=== PATIENT | female | born 1975 | race Caucasian/White ===

== ENCOUNTER 2024-03-26 11:31 | Outpatient (REF) | payer MEDICAID, SELFPAY ==
[2024-03-26 14:47] LABS: MANUAL DIFF FLAG NO
[2024-03-26 14:51] LABS: Basophils Absolute Auto 0.1 X10*3/uL (0.0-0.2); Basophils Percent Auto 0.8 % (0-2); Eosinophils Absolute Auto 0.2 X10*3/uL (0.0-0.4); Eosinophils Percent Auto 2.5 % (0-4); Hematocrit 43.5 % (37.0-47.0); Hemoglobin 14.4 g/dl (12.0-16.0); Imm Gran Abs Auto 0.02 X10*3/uL (0.00-0.03); Imm Gran Pct Auto 0.3 % (0.0-0.4); Lymphocytes Absolute Auto 2.7 X10*3/uL (1.2-4.9); Lymphocytes Percent Auto 36.3 % (20-40); Mean Corpuscular HGB Conc 33.1 g/dl (31.0-35.0); Mean Corpuscular Hemoglobin 28.2 pg (27.0-33.0); Mean Corpuscular Volume 85.3 fL (80.0-98.0); Mean Platelet Volume 10.6 fL (9.4-12.3); Monocytes Absolute Auto 0.5 X10*3/uL (0.1-1.2); Monocytes Percent Auto 6.7 % (2-11); Neutrophils Absolute Auto 3.9 x10*3/uL (2.0-8.3); Neutrophils Percent Auto 53.4 % (45-73); Platelet Count 296 X10*3/uL (160-400); White Blood Count 7.3 X10*3/uL (4.8-10.8)
[2024-03-26 15:13] LABS: Alanine Aminotransferase 14 U/L (0-31); Albumin Level 4.5 g/dL (3.5-5.0); Alkaline Phosphatase 79 U/L (39-117); Anion Gap 12 (12-20); Aspartate Amino Transferase 12 U/L (5-31); Bilirubin Total 0.3 mg/dL (0.0-1.0); Blood Urea Nitrogen 23 mg/dL (9-16); Carbon Dioxide 31 mmol/L (22-29); Chloride 103 mmol/L (96-108); Estimated Glomerular Filt Rate 58; Glucose Random 140 mg/dL (60-115); Potassium 4.6 mmol/L (3.3-5.1); Sodium 141 mmol/L (135-145); Total Protein 7.8 g/dL (6.5-8.0)
[2024-03-26 15:31] LABS: TSH reflex Free T4 0.55 uIU/mL (0.32-4.0); Vitamin D 25-OH Total 30.3 ng/mL (>30)
[2024-03-27 04:17] LABS: HIV AB/AG Nonreactive (Nonreactive); HIV Num 1 0.05 S/CO (0.00-0.99)
[2024-03-27 17:13] LABS: HCV Log PCR <1.18 NOT DETECTED Log IU/mL (NOT DETECTED); HepC Viral Load <15 NOT DETECTED IU/mL (NOT DETECTED)
[2024-03-28 22:23] LABS: TS Negative Control Passed; TS Panel A 0; TS Panel B 0; TS Positive Control Passed; TSpotTB Negative (Negative)
== END 2024-03-26 11:32 | disposition home or self-care (01) ==
LOC: HO.CHCLDS 11:31
PROVIDERS: PCP Student in an Organized Health Care Education/Training Program; Referring Provider Internal Medicine; Visit Provider Student in an Organized Health Care Education/Training Program
DX: Z00.00 Encounter for general adult medical examination without abnormal findings (principal); F41.9 Anxiety disorder, unspecified; F32.A Depression, unspecified
CPT/HCPCS: 36415; 80053; 82306; 84443; 85025; 86481; 87389; 87522

== ENCOUNTER 2024-05-13 15:40 | Outpatient (REF) | payer MEDICAID, SELFPAY ==
[2024-05-14 11:28] LABS: CT PCR NOT DETECTED (Not Detect.); NG PCR NOT DETECTED (Not Detect.)
== END 2024-05-13 15:41 | disposition home or self-care (01) ==
LOC: HO.CHCLNP 15:40
PROVIDERS: Visit Provider Student in an Organized Health Care Education/Training Program
DX: Z12.4 Encounter for screening for malignant neoplasm of cervix (principal)
CPT/HCPCS: 36415; 87491; 87591; 88175

== ENCOUNTER 2024-11-27 17:40 | Outpatient (REF) | payer MEDICAID, SELFPAY ==
--- OUTSIDE RECORDS SUMMARY | 2024-11-27 17:42 | XMS_ITS | Encounter Summary ---
Author Organization [employer] Address [address] [place] [address] Care Team Providers Care Management Department Chair Name Role Phone Luz Jacobs MD Primary Care Provider [phone] Encounter Details Date Type Department Care Team ([facility] st Contact Info) Description 11/27/2024 1:40 PM EDT Office Visit [facility] MED & PEDS [address] [place], [place] [id number] Vaginosis (Primary Dx); Neck pain, chronic; Acute bilateral low back pain with bilateral sciatica Social History Tobacco Use Types Packs/Day Years Used Date Smoking Tobacco: Every Day Cigarettes Smokeless Tobacco: Current Depression Answer Date Recorded Patient Health Questionnaire-9 Score 15 04/17/2024 Patient Health Questionnaire-9 Score 15 04/17/2024 Last PHQ-9: Questionnaire Data Not on file 0 04/17/2024 Housing Stability Answer Date Recorded What is your housing situation today? I have carolyn de la cruz 09/05/[address] you li ve. Do you have problems with any of the following? None of the above 09/05/2023 Food Insecurity Answer Date Recorded Within the past 12 months, y ou worried that your food would run out before you got money to buy more: Never True 09/05/2023 Within the past 12 months,th e food you bought just didn't last and you didn't have enough money to get more: Never True 01/2024 Transportation Answer Date Recorded In the past 12 months, has l ack of transportation kept you from medical appts, meetings, work or from getting things needed for daily living? No 09/05/2023 Utilities Answer Date Recorded In the past 12 months, has t he electric, gas, oil or water company threatened to shut off services in your home? No 09/05/2023 Depression Answer Date Recorded Patient Health Questionnaire-2 Score 6 04/17/2024 Comments No Sex and Gender Information Value Date Recorded Sex Assigned at Female 05/29/2022 10:21 AM EDT Legal Sex Female 10:21 AM EDT Gender Identity Female 05/29/2022 10:21 AM EDT Sexual Orientation Straight 05/29/2022 10 :21 AM EDT documented as of this encounter Last Filed Vital Signs Vital Sign Reading Time Taken Comments Blood Pressure 130/82 11/27/2024 1:51 PM EDT Pulse 98 11/27/2024 1:51 PM EDT Temperature 36.7 ??C (98.1 ??F) 11/27/2024 1:51 PM ED T Respiratory Rate 20 11/27/2024 1:51 PM EDT Oxygen Saturation 98% 11/27/2024 1:51 PM EDT Inhaled Oxygen Concentration - - Weight 80.7 kg (178 lb) 11/27/2024 1:51 PM EDT Height 152.4 cm (5') 11/27/2024 1:51 PM EDT Body Mass Index 34.76 11/27/2024 1:51 PM EDT documented in this encounter Plan of Treatment Upcoming Encounters Date Type Department Care Team (Late st Contact Info) Description 12/24/2024 8:45 AM EDT Office Visit [facility] MED & PEDS [address] [place] [address] Luz Jacobs MD [address] [place] [address] Scheduled Orders Name Type Priority Associated Diagnoses Orde r Schedule Bacterial Vaginosis Panel Microbiology Routine Vaginosis Ordered: 11/27/2024 Chlamydia/N. Gonorrhoeae RNA, TMA, Urogenitial Microbiology Routine Vaginosis Ordered: 11/27/2024 XR CERVICAL SPINE 4V Imaging Routine Neck pain, chronic Expected: 11/27/2024, Expires: 11/27/2025 documented as of this encounter Visit Diagnoses Diagnosis Vaginosis- Primary Neck pain, chronic Acute bilateral low back pain with bilateral sciatica documented in this encounter Additional Health Concerns Assessment Noted Time PHQ-9 Depression Total Score: 15 024 10:33 AM EDT documented as of this encounter Care Teams Management Department Chair Relationship Specialty Start Date End Date Luz Jacobs MD [address] [place] [id number] PCP - General Family Medicine 08/06/13 documented as of this encounter
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
--- OUTSIDE RECORDS SUMMARY | 2024-11-27 17:42 | XMS_ITS | Encounter Summary ---
Author Organization [employer] Address [address] [place] [address] Care Team Providers Care Machine Striper Name Role Phone Luz Jacobs MD Primary Care Provider Reason for Visit * Reason Onset Date Comments triage 11/23/2022 Encounter Details Date Type Department Care Team ([facility] st Contact Info) Description 11/23/2022 Telephone [facility] MEDICINE [address] [place] [address] Luz Jacobs MD [address] [place], [place] [phone] triage Social History Tobacco Use Types Packs/Day Years Used Date Smoking Tobacco: Every Day Cigarettes Comments Unknown Sex and Gender Information Value Date Recorded Sex Assigned at Female 05/29/2022 10:21 AM EDT Legal Sex Female 10:21 AM EDT Gender Identity Female 05/29/2022 10:21 AM EDT Sexual Orientation Straight 05/29/2022 10 :21 AM EDT documented as of this encounter Miscellaneous Notes * Telephone Encounter - Chante Paige RN - 11/23/2022 12:05 PM EDT Triage call with Walker Maintenance Electrician [place] [id number], Pt reports speaks nicaraguan, Maintenance Electrician is let go. Pt is speaking in hallway at work. Pt reports numbness on left side, whole left side . Pt reports this has started with numbness in bilateral arms and now is primarily a numbness on the left side. It has been going on for a few days. Pt is able to move, speaking clearly, walking without problem justthis sensation. pt is advised to seek evaluation in nearest ED and Pt agrees with disposition . Protocol Used: Neurologic Deficit (Adult) Protocol-Based Disposition: Go to ED/C Now (or to Office with PCP Approval) Positive Triage Question: * Neurologic deficit that was brief (now gone), ANY of the following: weakness of the face, arm, orleg on one side of the body, numbness of the face, arm, or leg on one side of the body, loss of speech or garbled speech * All higher-acuity triage questions were negative Care Advice Discussed: * Reasons To Call Back - Symptoms do not go away within 10 to 15 minutes - You become worse * Telephone Encounter - Dimitri Villa - 11/23/2022 11:50 AM EDT Symptom: Numbness Outcome: Schedule an urgent appointment (within 1 hour) or talk to a nurse or provider soon Reason: Started within the past 3 days The caller accepted this outcome documented in this encounter Plan of Treatment Upcoming Encounters Date Type Department Care Team (Late st Contact Info) Description 12/24/2024 8:45 AM EDT Office Visit [facility] MED & PEDS [address] [place] [address] Luz Jacobs MD [address] [place] [address] documented as of this encounter Visit Diagnoses Not on filedocumented in this encounter Care Teams Machine Striper Relationship Specialty Start Date End Date Luz Jacobs MD [address] [place] [address] PCP - General Family Medicine 08/06/13 documented as of this encounter
--- OUTSIDE RECORDS SUMMARY | 2024-11-27 17:42 | XMS_ITS | Encounter Summary ---
Author Organization [employer] Address [address] [place] [address] Care Team Providers Care Principal Automation Engineer Name Role Phone Luz Jacobs MD Primary Care Provider [phone] Reason for Visit * Reason Onset Date Comments Nurse Triage 10/29/2023 Encounter Details Date Type Department Care Team ([facility] st Contact Info) Description 10/29/2023 Telephone [facility] MEDICINE [address] [place] [address] Luz Jacobs MD [address] [place], [place] [phone] Nurse Triage Social History Tobacco Use Types Packs/Day Years Used Date Smoking Tobacco: Every Day Cigarettes Smokeless Tobacco: Current Depression Answer Date Recorded Patient Health Questionnaire-9 Score 22 09/12/2023 Patient Health Questionnaire-9 Score 22 09/12/2023 Last PHQ-9: Questionnaire Data Not on file 0 09/12/2023 Housing Stability Answer Date Recorded What is [...] Date Recorded Patient Health Questionnaire-2 Score 6 09/12/2023 Comments Unknown Sex and Gender Information Value Date Recorded Sex Assigned at Female 05/29/2022 10:21 AM EDT Legal Sex Female 10:21 AM EDT Gender Identity Female 05/29/2022 10:21 AM EDT Sexual Orientation Straight 05/29/2022 10 :21 AM EDT documented as of this encounter Miscellaneous Notes * Telephone Encounter - Chante Paige RN - 10/29/2023 3:50 PM EDT Triage call Pt reports for last 2 days right side of neck, shoulder, arm have been painful and radiation of pain to upper back. Pt reports right arm with hands/fingers with some numbness/tingling. Ptis neg for fever or RYNE symptoms. Pt is reporting difficulty working and going about daily activities and unable to hold things in the right hand. Pt reports tylenol/ibuprofen don't relieve pain, icehelps and hasn't tried heat yet. Pt is offered [facility] today but, reports no transportation and Pt prefers [facility]. Apt in [facility] 10/30/23 @ 1100am. Insurance is verified as active prior to booking. Pt agrees with disposition . Home care reviewed. Protocol Used: Arm Pain (Adult) Protocol-Based Disposition: See in Office or Video Visit Today or Tomorrow Video visit not offered Positive Triage Questions: * Numbness (i.e., loss of sensation) in hand or fingers * Patient wants to be seen * All higher-acuity triage questions were negative Care Advice Discussed: * Pain Medicines * Pain Medicines - Extra Notes and Warnings * Reasons To Call Back - Moderate pain (e.g., interferes with normal activities) lasts more than 3 days - Mild pain lasts more than 7 days - Arm swelling occurs - Signs of infection occur (e.g., spreading redness, warmth, fever) - You become worse * Use a Cold Pack for Pain * Use Heat After 48 Hours for Pain * Telephone Encounter - Rigo Ortega - 10/29/2023 3:22 PM EDT Symptoms: Hand or Wrist Pain - Not From Injury, Shoulder Pain - Not From Injury, Neck Pain - Not From Injury Outcome: Talk to a nurse or provider within 15 minutes Reason: Weakness of the arm The caller accepted this outcome documented in this encounter Plan of Treatment Upcoming Encounters Date Type Department Care Team (Late st Contact Info) Description 12/24/2024 8:45 AM EDT Office Visit [facility] MED & PEDS [address] [place] [address] Luz Jacobs MD [address] [place] [address] documented as of this encounter Visit Diagnoses Not on filedocumented in this encounter Additional Health Concerns Assessment Noted Time PHQ-9 Depression Total Score: 22 09/12/ 024 10:12 AM EST documented as of this encounter Care Teams Principal Automation Engineer Relationship Specialty Start Date End Date Luz Jacobs MD [address] [place] [address] PCP - General Family Medicine 08/06/13 documented as of this encounter
--- OUTSIDE RECORDS SUMMARY | 2024-11-27 17:42 | XMS_ITS | Encounter Summary ---
Author Organization [employer] Address [address] [place] [address] Care Team Providers Care Body Recall Instructor Name Role Phone Luz Jacobs MD Primary Care Provider [phone] Reason for Visit * Reason Comments Med Refill Encounter Details Date Type Department Care Team ([facility] st Contact Info) Description 04/09/2024 Refill [facility] CH[facility] MED & PEDS [address] [place] [address] Luz Jacobs MD [address] [place] [address] Anxiety Social History Tobacco Use Types Packs/Day Years Used Date Smoking Tobacco: Every Day Cigarettes Smokeless Tobacco: Current Depression Answer Date Recorded Patient Health Questionnaire-9 Score 11 03/26/2024 Patient Health Questionnaire-9 Score 11 03/26/2024 Last PHQ-9: Questionnaire Data Not on file 0 03/26/2024 Housing Stability Answer Date Recorded What is [...] Answer Date Recorded Patient Health Questionnaire-2 Score 2 03/26/2024 Comments Unknown Sex and Gender Information Value Date Recorded Sex Assigned at Female 05/29/2022 10:21 AM EDT Legal Sex Female 10:21 AM EDT Gender Identity Female 05/29/2022 10:21 AM EDT Sexual Orientation Straight 05/29/2022 10 :21 AM EDT documented as of this encounter Plan of Treatment Upcoming Encounters Date Type Department Care Team (Late st Contact Info) Description 12/24/2024 8:45 AM EDT Office Visit [facility] MED & PEDS [address] [place] [address] Luz Jacobs MD [address] [place] [address] documented as of this encounter Visit Diagnoses Diagnosis Anxiety Anxiety state, unspecified documented in this encounter Additional Health Concerns Assessment Noted Time PHQ-9 Depression Total Score: 11 024 10:57 AM EDT documented as of this encounter Care Teams Body Recall Instructor Relationship Specialty Start Date End Date Luz Jacobs MD [address] [place] [id number] PCP - General Family Medicine 08/06/13 documented as of this encounter
--- OUTSIDE RECORDS SUMMARY | 2024-11-27 17:42 | XMS_ITS | Encounter Summary ---
Author Organization [employer] Address [address] [place] [address] Care Team Providers Care Medium Cycle Salesperson Name Role Phone Luz Jacobs MD Primary Care Provider [phone] Reason for Visit * Reason Onset Date Comments Referral 09/25/2023 Encounter Details Date Type Department Care Team ([facility] st Contact Info) Description 09/25/2023 Telephone [facility] MEDICINE [address] [place] [address] Luz Jacobs MD [address] [place], [place] [phone] Referral Social History Tobacco Use Types Packs/Day Years [...] encounter Miscellaneous Notes * Telephone Encounter - María Diaz - 09/25/2023 3:28 PM EST Pt call and provide fax number, software writer send PT referral to fax [phone]. documented in this encounter Plan of Treatment Upcoming Encounters Date Type Department Care Team (Late st Contact Info) Description 12/24/2024 8:45 AM EDT Office Visit [facility] MED & PEDS [address] [place] [address] Luz Jacobs MD [address] [place] [address] documented as of this encounter Visit Diagnoses Not on filedocumented in this encounter Additional Health Concerns Assessment Noted Time PHQ-9 Depression Total Score: 22 09/12/ 024 10:12 AM EST documented as of this encounter Care Teams Medium Cycle Salesperson Relationship Specialty Start Date End Date Luz Jacobs MD [address] [place] [id number] PCP - General Family Medicine 08/06/13 documented as of this encounter
--- OUTSIDE RECORDS SUMMARY | 2024-11-27 17:42 | XMS_ITS | Encounter Summary ---
Author Organization [employer] Address [address] [place] [address] Care Team Providers Care Swimming Instructor Name Role Phone Luz Jacobs MD Primary Care Provider [phone] Reason for Visit * Reason Comments Med Refill Encounter Details Date Type Department Care Team ([facility] st Contact Info) Description 11/30/2023 Refill [facility] MED & PEDS [address] [place], [place] [phone] Luz Jacobs MD [address] [place] [address] Depression, unspecified depression type Social History Tobacco Use Types Packs/Day Years [...] Description 12/24/2024 8:45 AM EDT Office Visit [facility] MED & PEDS [address] [place] [address] Luz Jacobs MD [address] [place] [address] documented as of this encounter Visit Diagnoses Diagnosis Depression, unspecified depression type documented in this encounter Additional Health Concerns Assessment Noted Time PHQ-9 Depression Total Score: 22 024 10:12 AM EST documented as of this encounter Care Teams Swimming Instructor Relationship Specialty Start Date End Date Luz Jacobs MD [address] [place] [id number] PCP - General Family Medicine 08/06/13 documented as of this encounter
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
--- OUTSIDE RECORDS SUMMARY | 2024-11-27 17:42 | XMS_ITS | Encounter Summary ---
Author Organization [employer] Address [address] [facility] [place] [address] Care Team Providers Care Leather Products Supervisor Name Role Phone Luz Jacobs MD Primary Care Provider [phone] Encounter Details Date Type Department Care Team (Latest Contact Info) Description 11/27/2024 Travel Social History Tobacco Use Types Packs/Day Years [...] Description 12/24/2024 8:45 AM EDT Office Visit [facility] [address] [place] [address] Luz Jacobs MD [address] [place] [address] documented as of this encounter Visit Diagnoses Not on filedocumented in this encounter Additional Health Concerns Assessment Noted Time PHQ-9 Depression Total Score: 15 024 10:33 AM EDT documented as of this encounter Care Teams Leather Products Supervisor Relationship Specialty Start Date End Date Luz Jacobs MD [address] [place] [phone] PCP - General Family Medicine 08/06/13 documented as of this encounter
--- OUTSIDE RECORDS SUMMARY | 2024-11-27 17:42 | XMS_ITS | Encounter Summary ---
Author Organization [employer] Address [address] [facility] [address] [place] [address] Care Team Providers Care Associate Financial Analyst Name Role Phone Luz Jacobs MD Primary Care Provider [phone] Reason for Visit * Reason Onset Date Comments Nurse Triage 12/11/2023 Encounter Details Date Type Department Care Team ([facility] st Contact Info) Description 12/11/2023 Telephone [facility] [address] [place] [address] Luz Jacobs MD [address] [place], [place] [phone] Nurse Triage Social History Tobacco Use Types [...] encounter Miscellaneous Notes * Telephone Encounter - Alva Yancey RN - 12/11/2023 2:02 PM EDT T/C to pt regarding triage report. Pt report Numbness on left handed pinky and ring finger that area of her hand. Pt states that symptoms began on Sunday12/08/2023. Pt states that she is also having some dizziness and weakness in that hand, she's states that she is unable to hold items in that hand. Pt denies any SOB, chest pain, facial drooping, palpitations or any other symptoms at this time.RN does still advise that pt go to the ER for evaluation and neuro exam. Pt declines and states that she does not have a way to get to the ER, RN informs pt that [facility] can call her an uber free of charge. Pt again declines and states that she does not want to wait in the ER. RN advises pt that it is important that she get lab work done, but if she is unwilling to go to the ER she should be seen at least by a provider in walk-in clinic who could then potentially advise of ED. Pt expresses understanding and states that she has a friend who can drive-her to walk-in clinic in [place]. RN again advises that pt go to [facility] ED not walk-in clinic but at the very least make sure she is evaluated by a provider today. Pt expresses understanding and states that she will come to walk-in clinic at this time. * Telephone Encounter - María Lirao - 12/11/2023 1:48 PM EDT Tc from pt calling informing fingers numbness on right hand (2) documented in this encounter Plan of Treatment Upcoming Encounters Date Type Department Care Team (Late st Contact Info) Description 12/24/2024 8:45 AM EDT Office Visit [facility] [address] [place] [address] Luz Jacobs MD [address] [place] [address] documented as of this encounter Visit Diagnoses Not on filedocumented in this encounter Additional Health Concerns Assessment Noted Time PHQ-9 Depression Total Score: 22 024 10:12 AM EST documented as of this encounter Care Teams Associate Financial Analyst Relationship Specialty Start Date End Date Luz Jacobs MD [address] [place] [phone] PCP - General Family Medicine 08/06/13 documented as of this encounter
--- OUTSIDE RECORDS SUMMARY | 2024-11-27 17:42 | XMS_ITS | Clinical Summary ---
Author Organization [facility] ity Address [address] [place] [address] Care Team Providers Care Machine Set Up Technician Name Role Phone Unavailable Primary Care Provider Unavailabl e Social History Tobacco Use Types Packs/Day Years Used Date Smoking Tobacco: Never Assessed Comments Unknown Sex and Gender Information Value Date Recorded Sex Assigned at Not on file Legal Sex Female 9:03 AM EST Gender Identity Not on file Sexual Orientation Not on file Plan of Treatment Health Maintenance Due Date Last Done Comments DTaP,Tdap,and Td Vaccines (1 - Tdap) 1993 Hepatitis B Vaccines (1 of 3 - 19+ 3-dose series) 1993 Cervical Cancer Screening: P ap Smear 1995 Pneumococcal Vaccine: 50+ Ye ars (1 of 1 - PCV) 2024 Zoster Vaccines (1 of 2) 2024 COVID-19 Vaccine (2023-2 5 season) 2024 Colorectal Cancer Screening: Colonoscopy 05/08/2024 Depression Screening 05/08/2024 HIV Screening 05/08/2024 Hepatitis C Screening 05/08/2024 Social Influencers of Health Screening 05/08/2024 Influenza Vaccine (Season Ended) 2025 Breast Cancer Screening 04/17/2026 04/17/2024 HIB Vaccines Aged Out No longer eligi [...] on patient's age to complete this topic MMR Vaccines Aged Out No longer eligi ble based on patient's age to complete this topic Meningococcal ACWY Vaccine Aged Out N o longer eligible based on patient's age to complete this topic Meningococcal B Vaccine Aged Out No l onger eligible based on patient's age to complete this topic Pneumococcal Vaccine: Pediat rics (0 to 5 Years) and At-Risk Patients (6 to 64 Years) Aged Out No longer eligi ble based on patient's age to complete this topic RSV Immunization Patients Un neri 20 months Aged Out No longer eligible b ased on patient's age to complete this topic Varicella Vaccines Aged Out No longer eligible based on patient's age to complete this topic Procedures Procedure Name Priority Date/Time Associated Diagnosis Comments [facility] Routine 04/17/2024 8:43 AM EDT Encounter for screening mammogram for malignant neoplasm of breast from Last 3 Months or Most Recently Relevant to Health Maintenance Results * [facility] (04/17/2024 8:43 AM EDT) Anatomical Region Laterality Modality Mammography 04/10/2024 12:3 2 PM EDT Narrative 04/17/2024 8:43 AM EDT [facility] Diagnostic Imaging Department [address] [place] [address] Patient: ??STEPHEN NELSON ?/Age/Sex: 1975 - 49 - F Unit#: ??[id number] ? Location/Status: ??SPDIMAM/REG CLI ? Mnemonic/Ordering Site: ??DIGSC/SPMAM Ordering Physician: ??CARRILLO REID [facility] Scre[facility] Digital - 09/12/04 - [id number] Report Status:Signed EXAM: [facility] Screening Digital EXAM DATE AND TIME: 04/10/2024 1:08 PM HISTORY: ??Screening. COMPARISON: ??07/15/19, 05/14/18, 02/13/17, 01/23/17 [place], [place] TECHNIQUE: Bilateral digital breast tomosynthesis was performed in the CC and MLO projections. Computer aided detection with InVision 3D 3.1 was employed. TISSUE DENSITY: b. There are scattered areas of fibroglandular density. FINDINGS: No suspicious masses, grouped microcalcifications, or areas of architectural distortion are seen. Scattered subcentimeter nodular asymmetries and rare benign calcifications are without significant change. The skin and vascularity are unremarkable. IMPRESSION: Stable mammographic appearance of the breasts. ??No evidence of malignancy is seen. A negative mammogram in the presence of a clinically suspicious palpable abnormality does not preclude the possibility of malignancy or alter the indications for biopsy. BI-RADS: ??Category 2: Benign RECOMMENDATION(S): 1: Routine screening mammogram BILATERAL in 1 year. [facility] performed at [facility] [address] [place] [address] Dictating Physician: ??PAOLA VELA MD Electronically Signed by: ??PAOLA VELA MD Dic Date/Time: ??04/17/24 0842 Sign date/Time: ??04/17/24 0843 Procedure Note Paola Vela MD - 05/14/2024 [facility] Diagnostic Imaging Department [address] [place] [address] Patient: STEPHEN NELSON /Age/Sex: 1975 - 49 - F Unit#: [id number] Location/Status: SPDIMAM/REG CLI [facility] Ordering Physician: CARRILLO REID [facility] Screening Digital - 04/10/24 - [id number] Report Status:Signed EXAM: [facility] Digital EXAM DATE AND TIME: 04/10/2024 1:08 PM HISTORY: Screening. COMPARISON: 07/15/19, 05/14/18, 02/13/17, 01/23/17 [place], [place] TECHNIQUE: Bilateral digital breast tomosynthesis was performed in the CCand MLO projections. Computer aided detection with InVision 3D 3.1was employed. TISSUE DENSITY: b. There are scattered areas of fibroglandular density. FINDINGS: No suspicious masses, grouped microcalcifications, or areas ofarchitectural distortion are seen. Scattered subcentimeter nodular asymmetries and rarebenign calcifications are without significant change. The skin and vascularityare unremarkable. IMPRESSION: Stable mammographic appearance of the breasts. No evidence of malignancyis seen. A negative mammogram in the presence of a clinically suspicious palpable abnormality does not preclude the possibility of malignancy or alter the indications for biopsy. BI-RADS: Category 2: Benign RECOMMENDATION(S): 1: Routine screening mammogram BILATERAL in 1 year. Mammogram performed at [facility] [place] [address] Dictating Physician: PAOLA VELA MD Electronically Signed by: PAOLA VELA MD Dic Date/Time: 04/17/24841 Sign date/Time: 04/17/24842 Carrillo Reid MD IMG BI PROCEDURES Final R esult from Last 3 Months or Most Recently Relevant to Health Maintenance
[2024-11-28 01:26] LABS: CT PCR NOT DETECTED (Not Detect.); NG PCR NOT DETECTED (Not Detect.)
[2024-11-28 08:51] LABS: Bacterial Vaginosis PCR NEGATIVE (Negative); Candida Group PCR DETECTED (Not Detect); Candida glab krusei PCR NOT DETECTED (Not Detect); Trichomonas vaginalis PCR NOT DETECTED (Not Detect)
== END 2024-11-27 17:41 | disposition home or self-care (01) ==
LOC: HO.HHCLNP 17:40
PROVIDERS: Visit Provider Pediatrics
DX: N76.0 Acute vaginitis (principal)
CPT/HCPCS: 81515; 87491; 87591

== ENCOUNTER 2025-07-03 10:23 | Outpatient (REF) | payer MEDICAID, SELFPAY ==
--- OUTSIDE RECORDS SUMMARY | 2025-07-01 16:00 | XMS_ITS | Encounter Summary ---
Author Organization [employer] Address [address] [place] [address] [address] [place] [address] Care Team Providers Care Tempering Machine Operator Name Role Phone Alysia Galloway CNP Primary Care Provider [phone] Reason for Referral * Consultation (Routine) - Closed Specialty Diagnoses / Procedures Referred By Contac t Referred To Contact Chiropractic Medicine Diagnoses Chronic left shoulder pain Zach Lopez MD [address] [place] [address] Phone: tel: fax: Rajani [place] [address] [place] [address] Phone: tel: fax: Referral ID Status Reason Start Date Expiration Date V isits Requested Visits Authorized [id number] Closed Specialty Services Required 07/01/2025 07/01/2026 1 1 * Consultation (Urgent) - Authorized Specialty Diagnoses / Procedures Referred By Contac t Referred To Contact Orthopaedic Surgery Diagnoses Chronic left shoulder pain Zach Lopez MD [address] [place] [address] Phone: tel: fax: [facility] [address] Phone: tel: fax: Referral ID Status Reason Start Date Expiration Date Visits Requested Visits Authorized [id number] Authorized Specialty Services Required 07/01/2025 07/01/2026 1 1 Encounter Details Date Type Department Care Team (Late st Contact Info) Description 07/01/2025 4:00 PM EST Office Visit [facility] [address] [place] [address] Zach Lopez MD [address] [place] [address] Chronic left shoulder pain (Primary Dx); Type 2 diabetes mellitus without complication, without long-term current use of insulin (HCC) Social History Tobacco Use Types Packs/Day Years Used Date Smoking Tobacco: Every Day Cigarettes Passive Smoke Exposure: Current Smokeless Tobacco: Current Depression Answer Date Recorded [...] Sign Reading Time Taken Comments Blood Pressure 130/89 07/01/2025 4:02 PM EST Pulse 96 07/01/2025 4:02 PM EST Temperature 36.7 C (98 F) 07/01/2025 4:02 PM EST Respiratory Rate 20 07/01/2025 4:02 PM EST Oxygen Saturation - - Inhaled Oxygen Concentration - - Weight 77.6 kg (171 lb) 07/01/2025 4:02 PM EST Height - - Body Mass Index 33.4 12/24/2024 8:45 AM EDT documented in this encounter Progress Notes * Zach Lopez MD - 07/01/2025 4:00 PM EST Subjective Patient ID: Tommy Cardona is a 50 y.o. female who presents for No chief complaint on file.. Shoulder Pain The pain is present in the left shoulder. This is a chronic problem. The problem occurs constantly.The problem has been gradually worsening. The pain is at a severity of 7/10. The pain is severe. Associated symptoms include joint locking, a limited range of motion and tingling. Review of Systems Constitutional: Negative. Respiratory: Negative. Negative for shortness of breath. Cardiovascular: Negative for chest pain and palpitations. Gastrointestinal: Negative. Genitourinary: Negative. Musculoskeletal: Positive for arthralgias. Negative for neck pain. Neurological: Positive for tingling. Negative for headaches. Objective Physical Exam Constitutional: Appearance: Normal appearance. Cardiovascular: Rate and Rhythm: Normal rate and regular rhythm. Pulses: Normal pulses. Heart sounds: Normal heart sounds. Pulmonary: Effort: Pulmonary effort is normal. Musculoskeletal: Left shoulder: Tenderness present. Decreased range of motion. Neurological: Mental Status: She is alert. Assessment/Plan Diagnoses and all orders for this visit: Chronic left shoulder pain Comments: Advised Warm compress and Stretching Started On short course of prednisone and Celebrex Referred to Ortho and Chiropractor Orders: - Referral to Orthopaedic Surgery; Future - Referral to Chiropractic; Future Type 2 diabetes mellitus without complication, without long-term current use of insulin (HCC) Comments: pt stopped metformin Pt needs intensive medication management - Made appt with PCP Other orders - predniSONE (Deltasone) 20 MG tablet; Take 2 tablets (40 mg) by mouth Once per day for 3 days. - celecoxib (CeleBREX) 50 MG capsule; Take 1 capsule (50 mg) by mouth 2 times daily. documented in this encounter Miscellaneous Notes * Addendum Note - Zach Lopez MD - 07/01/2025 4:00 PM ESTAddended by: ZACH LOPEZ on: 07/01/2025 04:15 PM Modules accepted: Orders documented in this encounter Plan of Treatment Upcoming Encounters Date Type Department Care Team (Late st Contact Info) Description 08/14/2025 3:45 PM EST Office Visit [facility] [address] [place], [place] [id number] [facility] [address] [place], [place] [id number] Scheduled Referrals Name Type Priority Associated Diagnoses Order Schedule Referral to Orthopaedic Surgery Outpatient Referral Urgent Chronic left shoulder pain Expected: 07/01/2025 (Approximate), Expires: 07/01/2026 Referral to Chiropractic Outpatient Referral Routine Chronic left shoulder pain Expected: 07/01/2025 (Approximate), Expires: 07/01/2026 documented as of this encounter Goals Goal Patient Goal Type Associated Problems Recent Progress Patient-Stated? Author Help patients manage their type 2 diabetes Care Plan Help patients manage their type 2 diabetes Zach Granado MD Weekly blood pressure task Care Plan Weekly blood pressure task Zach Granado MD Help patients manage their type 2 diabetes Care Plan Help patients manage their type 2 diabetes Zach Granado MD Patient has chronic kidney disease Care Plan Patient has chronic kidney disease Zach Granado MD Weekly blood pressure task Care Plan Weekly blood pressure task Zach Granado MD Patient has chronic kidney disease Care Plan Patient has chronic kidney disease Zach Granado MD documented as of this encounter Procedures Procedure Name Priority Date/Time Associated Diagnosis Comments XR SHOULDER 2+ VIEWS LEFT Routine 07/01/2025 Chronic left shoulder pain documented in this encounter Results * XR Shoulder 2+ Views Left (07/01/2025) Anatomical Region Laterality Modality Upper Extremities, Shoulder Left Radi ographic Imaging Zach Lopez MD IMG XR PROCEDURES Final Result documented in this encounter Visit Diagnoses Diagnosis Chronic left shoulder pain- Primary Pain in joint, shoulder region Type 2 diabetes mellitus without complication, without long-term current use of insulin (HCC) documented in this encounter Additional Health Concerns Active Problems Noted Date Diagnosed Date Help patients manage their type 2 diabetes 07/01 Weekly blood pressure task 07/01/2025 Help patients manage their type 2 diabetes 07/01 Patient has chronic kidney disease 07/01/2025 Weekly blood pressure task 07/01/2025 Patient has chronic kidney disease 07/01/2025 Assessment Noted Time PHQ-9 Depression Total Score: 15 024 10:33 AM EDT documented as of this encounter Care Teams Tempering Machine Operator Relationship Specialty Start Date End Date Alysia Galloway CNP [address] [place] [id number] PCP - General Family Medicine 06/01/25 documented as of this encounter
--- OUTSIDE RECORDS SUMMARY | 2025-07-03 09:15 | XMS_ITS | Encounter Summary ---
Author Organization [employer] Address [address] [place] [address] [facility] [place] [address] Care Team Providers Care Administrative Secretary Name Role Phone Alysia Galloway CNP Primary Care Provider [phone] Reason for Referral * Consultation (Routine) - Authorized Specialty Diagnoses / Procedures Referred By Irvin gordillo Referred To Contact Behavioral Health Diagnoses Anxiety and depression Procedures Referral to Behavioral Health Alysia Galloway CNP [address] [place] [address] Phone: tel: fax: Referral ID Status Reason Start Date Expiration Date Visits Requested Visits Authorized [id number] Authorized Specialty Services Required 07/03/2025 07/03/2026 1 1 * Imaging (Routine) - Pending Review Specialty Diagnoses / Procedures Referred By Irvin gordillo Referred To Contact Radiology Diagnoses Chronic left shoulder pain Procedures MR Shoulder w/o Contrast Left Alysia Galloway CNP [address] [place] [address] Phone: tel: fax: [facility] Referral ID Status Reason Start Date Expiration Date V isits Requested Visits Authorized [id number] Pending Review 07/03/2025 07/03/2026 1 1 * Imaging (Routine) - Closed Specialty Diagnoses / Procedures Referred By Irvin gordillo Referred To Contact Radiology Diagnoses Encounter for screening mammogram for breast cancer Procedures BI Mammogram Screening Tomosynthesis Bilateral Alysia Galloway CNP [address] [place] [address] Phone: tel: fax: [facility] Referral ID Status Reason Start Date Expiration Date Visits Re quested Visits Authorized [id number] Closed 07/03/2025 07/03/2026 1 1 Encounter Details Date Type Department Care Team (Late st Contact Info) Description 07/03/2025 9:15 AM EST Office Visit [facility] MED & PEDS [address] [place] [address] Alysia Galloway CNP [address] [place] [address] Type 2 diabetes mellitus without complication, without long-term current use of insulin (HCC) (Primary Dx); Encounter for screening mammogram for breast cancer; Nicotine dependence, unspecified, uncomplicated; Fibromyalgia; Anxiety and depression; Chronic left shoulder pain; Insomnia, unspecified type Social History Tobacco Use Types Packs/Day [...] t he electric, gas, oil or water [employer] threatened to shut off services in your [...] Sign Reading Time Taken Comments Blood Pressure 120/78 07/03/2025 9:36 AM EST Pulse 94 07/03/2025 9:36 AM EST Temperature 36.6 C (97.9 F) 07/03/2025 9:36 AM EST Respiratory Rate 18 07/03/2025 9:36 AM EST Oxygen Saturation 98% 07/03/2025 9:36 AM EST Inhaled Oxygen Concentration - - Weight 76.7 kg (169 lb) 07/03/2025 9:36 AM EST Height 152.4 cm (5') 07/03/2025 9:36 AM EST Body Mass Index 33.01 07/03/2025 9:36 AM EST documented in this encounter Progress Notes * Alysia Galloway CNP - 07/03/2025 9:15 AM EST Subjective Patient ID: Tommy Cardona is a 50 y.o. female with PMH of newly diagnosed T2DM,hypertension, depression, asthma, fibromyalgia, and migraines who presents for TP visit, previous PCP Luz Jacobs MD. HPI Interim History -pt seen by Dr. German back in February 2025 due to polyuria, polydipsia, and dizziness. -history of Gestational DM -random BG 230, A1c 12.4 at time of visit -she was started on metformin 500 BID, she was prescribed supplies for SMBG. -pt previously referred to [facility] but was discharged due to absences. Health maintenance -due for mammo -due for routine labs -due for eye exam -flu, zoster, RSV, Hep B, covid Today's concerns Chronic L shoulder pain - Severe left shoulder pain, unable to lift arm, pain has worsened recently and is now intolerable;history of rotator cuff surgery in 2003, chronic pain in left arm since surgery. - Unable to perform daily activities due to arm pain, moved from own home to friend's house for assistance. -reports unable to sleep because of the pain -she is unable to work because of the pain -she has tried celebrex 50mg BID with mild relief, prednisone provided no relief -she also uses lidocaine patches -also has history of fibromyalgia, not currently on pain regimen. Anxiety/depression -reports worsening of anxiety/depression due to housing and financial insecurity, she is currently staying with a friend, she does lack transportation. -she also reports lack of sleep, currently taking ambien 5mg, which is not helpful. -no safety concerns at this time DM2 -reports post prandial BG of 146 -FBG 96 today -reports 2 recent episodes of hypoglycemia including dizziness and feeling faint, this often occursmidday -she reports diet low in carbohydrates but she mostly enjoys sweets -her is also diabetic, she is familiar with self monitoring BG and insulin injections. -she reports she is unable to tolerate metformin due to GI side effects, she stopped this medication over 2 weeks ago. -she also stopped hydrochlorothiazide due to ongoing dizziness, her BP is controlled today. She also monitors BP at home. Review of Systems Objective Vitals: 07/03/25 0936 BP: 120/78 Pulse: 94 Resp: 18 Temp: 97.9 ??F (36.6 ??C) SpO2: 98% Physical Exam Constitutional: Appearance: Normal appearance. She is normal weight. Cardiovascular: Rate and Rhythm: Normal rate and regular rhythm. Pulses: Normal pulses. Heart sounds: Normal heart sounds. No murmur heard. No friction rub. No gallop. Pulmonary: Effort: Pulmonary effort is normal. No respiratory distress. Breath sounds: Normal breath sounds. No wheezing or rales. Musculoskeletal: Left shoulder: No swelling, deformity, tenderness, bony tenderness or crepitus. Decreased range of motion. Decreased strength. Comments: +decreased ROM in abduction and flexion Neurological: General: No focal deficit present. Mental Status: She is alert and oriented to person, place, and time. Psychiatric: Mood and Affect: Mood normal. Behavior: Behavior normal. Thought Content: Thought content normal. Judgment: Judgment normal. Assessment/Plan Problem List Items Addressed This Visit None Visit Diagnoses Type 2 diabetes mellitus without complication, without long-term current use of insulin (HCC) - Primary Relevant Medications Tirzepatide (Mounjaro) 2.5 MG/0.5ML solution auto-injector Other Relevant Orders Lipid Panel, Standard CBC auto differential Comprehensive Metabolic Panel Hemoglobin A1c Albumin, Random Urine W/Creatinine POCT A1c (Completed) POCT glucose manually resulted (Completed) Lab Results Component Value Date HGBA1C 9.2 (A) 07/03/2025 A1c has improved by 3 points in past 3 months with mostly dietary modification given pt self discontinued metformin due to GI side effects. FBG is also in range Consideration for jardiance and/or GLP 1 for ongoing glycemic control. At this point we will try for Mounjaro for ongoing glycemic control and weight loss. Pt due for eye exam-she was referred today Routine lab work ordered today Treatment Goals: A1c goal: <7% FBG goal: <130 2 hour post prandial goal: <180 Advised Low sugar and Low carb diet. Counseled regarding self-monitoring of blood glucose. Counseled re: potential co-morbidities including cardiovascular disease. Counseled re: potential co-morbidities include neuropathy and retinopathy. Counseled re: potential co-morbidities include nephropathy. Encounter for screening mammogram for breast cancer Relevant Medications celecoxib (CeleBREX) 200 MG capsule Other Relevant Orders BI Mammogram Screening Tomosynthesis Bilateral Nicotine dependence, unspecified, uncomplicated trial of nicotine lozenges Relevant Medications nicotine polacrilex (Commit) 2 MG lozenge Re prescribed commit lozenges as they have proven to be most helpful with smoking cessation Fibromyalgia Relevant Medications DULoxetine (Cymbalta) [address] capsule celecoxib (CeleBREX) 200 MG capsule acetaminophen (Tylenol Extra Strength) 500 MG tablet lidocaine (Lidoderm) 5 % patch For fibromyalgia I recommend exercise and lifestyle modifications We will also trial duloxetine 60mg for chronic pain and to help with mental health concerns I also increased celebrex to 200mg BID and re prescribed her lido patches Future consideration for pain mgmt at [facility], acupuncture Anxiety and depression Relevant Medications DULoxetine (Cymbalta) [address] capsule zolpidem (Ambien) 10 MG tablet Other Relevant Orders Referral to Behavioral Health No safety concerns Increased ambien to 10mg for sleep We will trial duloxetine for pain and for depression Referred to for OP therapy Chronic left shoulder pain Relevant Medications celecoxib (CeleBREX) 200 MG capsule acetaminophen (Tylenol Extra Strength) 500 MG tablet lidocaine (Lidoderm) 5 % patch methocarbamol (Robaxin) 500 MG tablet Other Relevant Orders MR Shoulder w/o Contrast Left Pt limited ROM in abduction and flexion, likely 2/2 tendinopathy of rotator cuff She declines pt I will obtain MRI Ortho referral already in place Prescribed nsaids, tylenol, lido patches and muscle relaxant Insomnia, unspecified type Relevant Medications DULoxetine (Cymbalta) [address] capsule zolpidem (Ambien) 10 MG tablet Follow up in about 6 weeks (around 08/14/2025) for F/u chronic conditions . documented in this encounter Plan of Treatment Upcoming Encounters Date Type Department Care Team (Late st Contact Info) Description 08/14/2025 3:45 PM EST Office Visit [facility] MED & PEDS [address] [place], [place] [id number] Alysia Galloway CNP [address] [place], [place] [phone] Scheduled Orders Name Type Priority Associated Diagnoses Orde r Schedule Lipid Panel, Standard Lab Routine Type 2 diabetes mellitus without complication, without long-term current use of insulin (HCC) Expected: 07/03/2025 (Approximate), Expires: 07/03/2026 CBC auto differential Lab Routine Type 2 diabetes mellitus without complication, without long-term current use of insulin (HCC) Expected: 07/03/2025 (Approximate), Expires: 07/03/2026 Comprehensive Metabolic Panel Lab Routine Type 2 diabetes mellitus without complication, without long-term current use of insulin (HCC) Expected: 07/03/2025 (Approximate), Expires: 07/03/2026 Hemoglobin A1c Lab Routine Type 2 diabetes mellitus without complication, without long-term current use of insulin (HCC) Expected: 07/03/2025 (Approximate), Expires: 07/03/2026 Albumin, Random Urine W/Creatinine Lab Routine Type 2 diabetes mellitus without complication, without long-term current use of insulin (HCC) Expected: 07/03/2025 (Approximate), Expires: 07/03/2026 BI Mammogram Screening Tomosynthesis Bilateral Imaging Routine Encounter for screening mammogram for breast cancer Expected: 07/03/2025, Expires: 09/03/2026 MR Shoulder w/o Contrast Left Imaging Routine Chronic left shoulder pain Expected: 07/03/2025, Expires: 07/03/2026 documented as of this encounter Goals Goal Patient Goal Type Associated Problems Recent Progress Patient-Stated? Author Help patients manage their type 2 diabetes Care Plan Help patients manage their type 2 diabetes No Luz Jacobs MD Weekly blood pressure task Care Plan Weekly blood pressure task No Luz Jacobs MD Help patients manage their type 2 diabetes Care Plan Help patients manage their type 2 diabetes No Luz Jacobs MD Patient has chronic kidney disease Care Plan Patient has chronic kidney disease No Luz Jacobs MD Weekly blood pressure task Care Plan Weekly blood pressure task No Luz Jacobs MD Patient has chronic kidney disease Care Plan Patient has chronic kidney disease No Luz Jacobs MD Weekly blood pressure task Care Plan Weekly blood pressure task No Alysia Galloway CNP Weekly blood pressure task Care Plan Weekly blood pressure task No Alysia Galloway CNP Patient has chronic kidney disease Care Plan Patient has chronic kidney disease No Alysia Galloway CNP Patient has chronic kidney disease Care Plan Patient has chronic kidney disease No Alysia Galloway CNP documented as of this encounter Procedures Procedure Name Priority Date/Time Associated Diagnosis Comments POCT GLYCATED HEMOGLOBIN, TOTAL Routine 07/03/2025 10:05 AM EST Type 2 diabetes mellitus without complication, without long-term current use of insulin (HCC) POCT GLUCOSE Routine 07/03/2025 9:39 AM EST Type 2 diabetes mellitus without complication, without long-term current use of insulin (HCC) documented in this encounter Results * (ABNORMAL) POCT A1c (07/03/2025 10:05 AM EST) Hemoglobin A1C 9.2(A) 4.0 - 5.7 % QC Media Lot # Comment:[id number] Lot# Expiration Date Comment:07/03/2027 Blood 07/03/2025 10:0 5 AM EST Alysia Galloway CNP POINT OF CARE TEST ENTER/ EDIT ORDERABLES Final Result * POCT glucose manually resulted (07/03/2025 9:39 AM EST) Glucose Blood, POC 169 60 - 200 mg/dL QC Media Lot # Comment:[id number] Lot# Expiration Date Comment:11/03/2025 Blood Capillary blood specimen / Unknown 07/03/2025 9:39 AM EST [facility] POINT OF CARE TEST ENTER/ EDIT ORDERABLES Final Result documented in this encounter Visit Diagnoses Diagnosis Type 2 diabetes mellitus without complication, without long-term current use of insulin (HCC)- Primary Encounter for screening mammogram for breast cancer Nicotine dependence, unspecified, uncomplicated Fibromyalgia Unspecified myalgia and myositis Anxiety and depression Chronic left shoulder pain Pain in joint, shoulder region Insomnia, unspecified type documented in this encounter Additional Health Concerns Active Problems Noted Date Diagnosed Date Help patients manage their type 2 diabetes 07/01 Weekly blood pressure task 07/01/2025 Help patients manage their type 2 diabetes 07/01 Patient has chronic kidney disease 07/01/2025 Weekly blood pressure task 07/01/2025 Patient has chronic kidney disease 07/01/2025 Weekly blood pressure task 07/03/2025 Weekly blood pressure task 07/03/2025 Patient has chronic kidney disease 07/03/2025 Patient has chronic kidney disease 07/03/2025 Assessment Noted Time PHQ-9 Depression Total Score: 15 024 10:33 AM EDT documented as of this encounter Care Teams Administrative Secretary Relationship Specialty Start Date End Date Alysia Galloway CNP [address] [place] [address] PCP - General Family Medicine 06/01/25 documented as of this encounter
--- OUTSIDE RECORDS SUMMARY | 2025-07-03 12:00 | XMS_ITS | Encounter Summary ---
Author Organization [employer] Address [address] [facility] 7 [place] [address] Care Team Providers Care Knot Tying Operator Name Role Phone Nilesh Hansvicenteanthony IRA Primary Care Provider [phone] Reason for Visit * Reason Comments Med Refill Encounter Details Date Type Department Care Team ([facility] st Contact Info) Description 06/09/2025 Refill [facility] CH[facility] MED & PEDS [address] [place], [place] [phone] Danuta German MD [address] [place] [address] Social History Tobacco Use Types Packs/Day Years [...] 3:45 PM EST Office Visit [facility] MED & PEDS [address] [place] [address] Alysia Galloway CNP [address] [place] [address] documented as of this encounter Visit Diagnoses Not on filedocumented in this encounter Additional Health Concerns Assessment Noted Time PHQ-9 Depression Total Score: 15 024 10:33 AM EDT documented as of this encounter Care Teams Knot Tying Operator Relationship Specialty Start Date End Date Alysia Galloway CNP [address] [place] [address] PCP - General Family Medicine 06/01/25 documented as of this encounter
--- OUTSIDE RECORDS SUMMARY | 2025-07-03 12:00 | XMS_ITS | Clinical Summary ---
Author Organization [facility] [employer] [facility] ity Address [address] [place] [address] Care Team Providers Care Manager Drive Name Role Phone Unavailable Primary Care Provider Unavailabl e Social History Tobacco Use Types Packs/Day Years Used Date Smoking Tobacco: Never Assessed Comments Unknown Sex and Gender Information Value Date Recorded Sex Assigned at Not on file Legal Sex Female 9:03 AM EST Gender Identity Not on file Sexual Orientation Not on file Plan of Treatment Health Maintenance Due Date Last Done Comments Colorectal Cancer Screening: Colonoscopy 1974 DTaP,Tdap,and Td Vaccines (1 - Tdap) 1993 Hepatitis B Vaccines (1 of 3 - 19+ 3-dose series) 1993 Cervical Cancer Screening: P ap Smear 1995 Pneumococcal Vaccine: 50+ Ye ars (1 of 1 - PCV) 2024 Zoster Vaccines (1 of 2) 2024 HIV Screening 05/08/2024 Hepatitis C Screening 05/08/2024 Social Influencers of Health Screening 05/08/2024 Depression Screening 07/30/2024 COVID-19 Vaccine (1 - 2024-2 6 season) 2025 Influenza Vaccine (#1) 2025 Breast Cancer Screening 04/17/2026 04/17/2024 RSV Immunization Adult Patie nts (1 - 1-dose 75+ series) 2049 HIB Vaccines Aged Out No longer eligi [...] Procedure Name Priority Date/Time Associated Diagnosis Comments [facility] SCREENING DIGITAL Routine 04/17/2024 8:43 AM EDT Encounter for screening mammogram for malignant neoplasm of breast from Last 3 Months or Most Recently Relevant to Health Maintenance Results * [facility] SCREENING DIGITAL (04/17/2024 8:43 AM EDT) Anatomical Region Laterality Modality Mammography 04/10/2024 12:3 2 PM EDT Narrative 04/17/2024 8:43 AM EDT [facility] Diagnostic Imaging Department [address] [place] [address] Patient: STEPHEN NELSON./Age/Sex: 1975 - 49 - F Unit#: [id number] Location/Status: [facility] CLI Mnemonic/Ordering Site: [facility] Ordering Physician: CARRILLO REID [facility] Screening Digital - 04/10/24 - 1307 Report Status:Signed EXAM: [facility] Screening Digital EXAM DATE AND TIME: 04/10/2024 1:08 PM HISTORY: Screening. COMPARISON: 07/15/19, 05/14/18, 02/13/17, 01/23/17 [place], [place] TECHNIQUE: Bilateral digital breast tomosynthesis was performed in the CC and MLO projections. Computer aided detection with Kri[employer] 3D 3.1 was employed. TISSUE DENSITY: b. There are scattered areas of fibroglandular density. FINDINGS: No suspicious masses, grouped microcalcifications, or areas of architectural distortion are seen. Scattered subcentimeter nodular asymmetries and rare benign calcifications are without significant change. The skin and vascularity are unremarkable. IMPRESSION: Stable mammographic appearance of the breasts. No evidence of malignancy is seen. A negative mammogram in the presence of a clinically suspicious palpable abnormality does not preclude the possibility of malignancy or alter the indications for biopsy. BI-RADS: Category 2: Benign RECOMMENDATION(S): 1: Routine screening mammogram BILATERAL in 1 year. Mammogram performed at [facility] at [address] [address] Dictating Physician: PAOLA VEAL MD Electronically Signed by: PAOLA VELA MD Dic Date/Time: 04/17/24841 Sign date/Time: 04/17/24842 Procedure Note Paola Vela MD - 05/14/2024 [facility] Diagnostic Imaging Department [address] [place] [address] Patient: LESLIEOSCARBRIDGERCalixto /Age/Sex: 1975 - 49 - F Unit#: [id number] Location/Status: [facility]REG CLI Mnemonic/Ordering Site: [facility] Ordering Physician: CARRILLO REID [facility] Screening Digital - 04/10/24 - 1307 Report Status:Signed EXAM: [facility] Screening Digital EXAM DATE AND TIME: 04/10/2024 1:08 PM HISTORY: Screening. COMPARISON: 07/15/19, 05/14/18, 02/13/17, 01/23/17 [place], [place] TECHNIQUE: Bilateral digital breast tomosynthesis was performed in the CCand MLO projections. Computer aided detection with Kriyari 3D 3.1was employed. TISSUE DENSITY: b. There [...] Mammogram performed at [facility] [place] [address] Dictating Physician: PAOLA VELA MD Electronically Signed by: PAOLA VELA MD Dic Date/Time: 04/17/2442 Sign date/Time: 04/17/24 0843 us Carrillo Reid MD IMG BI PROCEDURES Final R esult from Last 3 Months or Most Recently Relevant to Health Maintenance
--- OUTSIDE RECORDS SUMMARY | 2025-07-03 12:00 | XMS_ITS | Encounter Summary ---
Author Organization [employer] Address [address] [facility] 7 [place] [address] Care Team Providers Care Detective Precinct Name Role Phone Luz Jacobs MD Primary Care Provider [phone] Alysia Galloway CNP Primary Care Provider [phone] Reason for Visit * Reason Onset Date Comments Nurse Triage 12/11/2023 Encounter Details Date Type Department Care Team (Late st Contact Info) Description 12/11/2023 Telephone [facility] MEDICINE [address] [place] [address] Luz Jacobs MD [address] [place] [address] Nurse Triage Social History Tobacco Use Types [...] to the ER, RN informs pt that [facility] can call her an uber [...] who can drive-her to walk-in clinic in [place]. RN again advises that pt go to [facility] ED not walk-in clinic but at the very least make sure she is evaluated by a provider today. Pt expresses understanding and states that she will come to walk-in clinic at this time. * Telephone Encounter - María Hammondoyo - 12/11/2023 1:48 PM EDT Tc from pt calling informing fingers numbness on right hand (2) documented in this encounter Plan of Treatment Upcoming Encounters Date Type Department Care Team (Late st Contact Info) Description 08/14/2025 3:45 PM EST Office Visit [facility] CHC MED & PEDS [address] [place] [address] Alysia Galloway CNP [address] [place] [address] documented as of this encounter Visit Diagnoses Not on filedocumented in this encounter Additional Health Concerns Assessment Noted Time PHQ-9 Depression Total Score: 22 024 10:12 AM EST documented as of this encounter Care Teams Detective Precinct Relationship Specialty Start Date End Date Luz Jacobs MD [address] [place] [address] PCP - General Family Medicine 08/06/13 05/31/25 Alysia Galloway CNP [address] [place] [address] PCP - General Family Medicine 06/01/25 documented as of this encounter
--- OUTSIDE RECORDS SUMMARY | 2025-07-03 12:00 | XMS_ITS | Encounter Summary ---
Author Organization [employer] Address [address] [facility] 7 [place] [address] Care Team Providers Care Pet Ambassador Name Role Phone Luz Jacobs MD Primary Care Provider [phone] Alysia Galloway CNP Primary Care Provider [phone] Reason for Visit * Reason Onset Date Comments Nurse Triage 10/29/2023 Encounter Details Date Type Department Care Team (Late st Contact Info) Description 10/29/2023 Telephone [facility] MEDICINE [address] [place] [address] Luz Jacobs MD [address] [place] [address] Nurse Triage Social History Tobacco Use Types [...] hasn't tried heat yet. Pt is offered [facility] today but, reports no transportation and Pt prefers [facility]. Apt in [place] 10/30/23 @ 1100am. Insurance is verified as [...] Description 08/14/2025 3:45 PM EST Office Visit [facility] CHC MED & PEDS [address] [place] [address] Alysia Galloway CNP [address] [place] [address] documented as of this encounter Visit Diagnoses Not on filedocumented in this encounter Additional Health Concerns Assessment Noted Time PHQ-9 Depression Total Score: 22 024 10:12 AM EST documented as of this encounter Care Teams Pet Ambassador Relationship Specialty Start Date End Date Luz Jacobs MD [address] [place] [address] PCP - General Family Medicine 08/06/13 05/31/25 Alysia Galloway CNP [address] [place] [address] PCP - General Family Medicine 06/01/25 documented as of this encounter
--- OUTSIDE RECORDS SUMMARY | 2025-07-03 12:00 | XMS_ITS | Encounter Summary ---
Author Organization [email or web address] Address [address] [facility] 7 [place] [address] Care Team Providers Care Mail Reader Name Role Phone Luz Jacobs MD Primary Care Provider [phone] Alysia Galloway CNP Primary Care Provider [phone] Reason for Visit * Reason Onset Date Comments Referral 09/25/2023 Encounter Details Date Type Department Care Team ([facility] st Contact Info) Description 09/25/2023 Telephone [facility] [address] [place] [address] Luz Jacobs MD [address] [place] [address] Referral Social History Tobacco Use Types Packs/Day [...] EST Pt call and provide fax number, commercial underwriter send PT referral to fax [phone]. documented in this encounter Plan of Treatment Upcoming Encounters Date Type Department Care Team (Late st Contact Info) Description 08/14/2025 3:45 PM EST Office Visit [facility] MED & PEDS [address] [place], [place] [phone] Alysia Galloway CNP [address] [place] [address] documented as of this encounter Visit Diagnoses Not on filedocumented in this encounter Additional Health Concerns Assessment Noted Time PHQ-9 Depression Total Score: 22 024 10:12 AM EST documented as of this encounter Care Teams Mail Reader Relationship Specialty Start Date End Date Luz Jacobs MD [address] [place], [place] [phone] PCP - General Family Medicine 08/06/13 05/31/25 Alysia Galloway CNP [address] [place], [place] [phone] PCP - General Family Medicine 06/01/25 documented as of this encounter
--- OUTSIDE RECORDS SUMMARY | 2025-07-03 12:00 | XMS_ITS | Encounter Summary ---
Author Organization [employer] Address [address] [facility] [address]t [place] [address] Care Team Providers Care Public Information Officer Name Role Phone Alysia Galloway CNP Primary Care Provider [phone] Encounter Details Date Type Department Care Team ([facility] st Contact Info) Description 06/11/2025 Telephone [facility] [address] [place], [place] [phone] Ayana Grullon, MARIA D [address] [place] [address] Social History Tobacco Use Types Packs/Day Years [...] Description 08/14/2025 3:45 PM EST Office Visit [facility] PEDS [address] [place] [address] Alysia Galloway CNP [address] [place] [address] documented as of this encounter Visit Diagnoses Not on filedocumented in this encounter Additional Health Concerns Assessment Noted Time PHQ-9 Depression Total Score: 15 024 10:33 AM EDT documented as of this encounter Care Teams Public Information Officer Relationship Specialty Start Date End Date Alysia Galloway CNP [address] [place] [address] PCP - General Family Medicine 06/01/25 documented as of this encounter
--- OUTSIDE RECORDS SUMMARY | 2025-07-03 12:01 | XMS_ITS | Encounter Summary ---
Author Organization [employer] Address [address] [facility] 7t [place] [address] Care Team Providers Care Lower In Supervisor Name Role Phone Luz Jacobs MD Primary Care Provider [phone] Alysia Galloway CNP Primary Care Provider [phone] Reason for Visit * Reason Onset Date Comments triage 11/23/2022 Encounter Details Date Type Department Care Team (Late st Contact Info) Description 11/23/2022 Telephone [facility] MEDICINE [address] [place] [address] Luz Jacobs MD [address] [place], [place] [phone] triage Social History Tobacco Use Types Packs/Day [...] 11/23/2022 12:05 PM EDT Triage call with [place] Clinical Application Specialist ID [id number], Pt reports speaks pashto, Clinical Application Specialist is let go. Pt is speaking in [...] Description 08/14/2025 3:45 PM EST Office Visit [facility] [address] [place] [address] Alysia Galloway CNP [address] [place] [address] documented as of this encounter Visit Diagnoses Not on filedocumented in this encounter Care Teams Lower In Supervisor Relationship Specialty Start Date End Date Luz Jacobs MD [address] [place] [address] PCP - General Family Medicine 08/06/13 05/31/25 Alysia Galloway CNP [address] [place] [address] PCP - General Family Medicine 06/01/25 documented as of this encounter
--- OUTSIDE RECORDS SUMMARY | 2025-07-03 12:01 | XMS_ITS | Encounter Summary ---
Author Organization [employer] Address [address] [facility] 7 [place] [address] Care Team Providers Care Ramp Service Man Name Role Phone Luz Jacobs MD Primary Care Provider [phone] Alysia Galloway CNP Primary Care Provider [phone] Reason for Visit * Reason Comments Med Refill Encounter Details Date Type Department Care Team (Late st Contact Info) Description 04/09/2024 Refill [facility] [address] [place] [address] Luz Jacobs MD [address] [place] [address] Anxiety Social History Tobacco Use Types Packs/Day [...] Upcoming Encounters Date Type Department Care Team ([facility] st Contact Info) Description 08/14/2025 3:45 PM EST Office Visit [facility] [address] [place] [address] Alysia Galloway CNP [address] [place] [address] documented as of this encounter Visit Diagnoses Diagnosis Anxiety Anxiety state, unspecified documented in this encounter Additional Health Concerns Assessment Noted Time PHQ-9 Depression Total Score: 11 024 10:57 AM EDT documented as of this encounter Care Teams Ramp Service Man Relationship Specialty Start Date End Date Luz Jacobs MD [address] [place] [address] PCP - General Family Medicine 08/06/13 05/31/25 Alysia Galloway CNP [address] [place] [address] PCP - General Family Medicine 06/01/25 documented as of this encounter
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
--- OUTSIDE RECORDS SUMMARY | 2025-07-03 12:01 | XMS_ITS | Encounter Summary ---
Author Organization [employer] Address [address] [facility] [address] [place] [address] Care Team Providers Care Applications Support Lead Name Role Phone NileshHansvicenteanthony IRA Primary Care Provider [phone] Encounter Details Date Type Department Care Team (Latest Contact Info) Description 07/01/2025 Travel Social History Tobacco Use Types Packs/Day [...] Description 08/14/2025 3:45 PM EST Office Visit [facility] [address] [place] [address] Alysia Galloway CNP [address] [place] [address] documented as of this encounter Goals Goal [...] Help patients manage their type 2 diabetes Luz Granado MD Patient has chronic kidney disease Care Plan Patient has chronic kidney disease Luz Granado MD Weekly blood pressure task Care Plan Weekly blood pressure task Luz Granado MD Patient has chronic kidney disease Care Plan Patient has chronic kidney disease No Luz Jacobs MD documented as of this encounter Visit Diagnoses Not on filedocumented in this encounter Additional Health Concerns Active [...] documented as of this encounter Care Teams Applications Support Lead Relationship Specialty Start Date End Date Alysia Galloway CNP [address] [place] [address] PCP - General Family Medicine 06/01/25 documented as of this encounter
--- OUTSIDE RECORDS SUMMARY | 2025-07-03 12:01 | XMS_ITS | Encounter Summary ---
Author Organization [employer] Address [address] [facility] [address]t [place] [address] Care Team Providers Care Financial Quantitative Analyst Name Role Phone NileshHansvicenteanthony IRA Primary Care Provider [phone] Encounter Details Date Type Department Care Team (Latest Contact Info) Description 07/03/2025 Travel Social History Tobacco Use Types Packs/Day [...] Upcoming Encounters Date Type Department Care Team ([facility] st Contact Info) Description 08/14/2025 3:45 PM EST Office Visit [facility] [address] [place] [address] Alysia Galloway CNP [address] [place] [address] documented as of this encounter Goals Goal [...] Galloway CNP documented as of this encounter Visit Diagnoses [...] documented as of this encounter Care Teams Financial Quantitative Analyst Relationship Specialty Start Date End Date Alysia Galloway CNP [address] [place] [address] PCP - General Family Medicine 06/01/25 documented as of this encounter
--- OUTSIDE RECORDS SUMMARY | 2025-07-03 12:01 | XMS_ITS | Encounter Summary ---
Author Organization [employer] Address [address] [facility] 7 [place] [address] Care Team Providers Care Zoning Engineer Name Role Phone Luz Jacobs MD Primary Care Provider Alysia Galloway CNP Primary Care Provider [phone] Reason for Visit * Reason Comments Med Refill Encounter Details Date Type Department Care Team ([facility] st Contact Info) Description 02/24/2025 Refill [facility] PEDS [address] [place] [address] Iris Reid MD [address] [place] [address] Depression, unspecified depression type Social History Tobacco [...] 08/14/2025 3:45 PM EST Office Visit [facility] MED & PEDS [address] [place] [address] Alysia Galloway CNP [address] [place] [address] documented as of this encounter Visit Diagnoses Diagnosis Depression, unspecified depression type documented in this encounter Additional Health Concerns Assessment Noted Time PHQ-9 Depression Total Score: 15 024 10:33 AM EDT documented as of this encounter Care Teams Zoning Engineer Relationship Specialty Start Date End Date Luz Jacobs MD [address] [place] [address] PCP - General Family Medicine 08/06/13 05/31/25 Alysia Galloway CNP [address] [place] [address] PCP - General Family Medicine 06/01/25 documented as of this encounter
--- OUTSIDE RECORDS SUMMARY | 2025-07-03 12:01 | XMS_ITS | Encounter Summary ---
Author Organization [employer] Address [address] [facility] 7 [place] [address] Care Team Providers Care Ward Clerk Name Role Phone Luz Jacobs MD Primary Care Provider [phone] Alysia Galloway CNP Primary Care Provider [phone] Reason for Visit * Reason Comments Med Refill Encounter Details Date Type Department Care Team (Late st Contact Info) Description 11/30/2023 Refill [facility]EDS [address] [place], [place] [id number] Luz Jacobs MD [address] [place] [address] Depression, unspecified depression type Social History Tobacco [...] Description 08/14/2025 3:45 PM EST Office Visit [facility] MED & PEDS [address] [place] [address] Alysia Galloway CNP [address] [place] [address] documented as of this encounter Visit Diagnoses Diagnosis Depression, unspecified depression type documented in this encounter Additional Health Concerns Assessment Noted Time PHQ-9 Depression Total Score: 22 024 10:12 AM EST documented as of this encounter Care Teams Ward Clerk Relationship Specialty Start Date End Date Luz Jacobs MD [address] [place] [id number] PCP - General Family Medicine 08/06/13 05/31/25 Alysia Galloway CNP [address] [place] [address] PCP - General Family Medicine 06/01/25 documented as of this encounter
--- OUTSIDE RECORDS SUMMARY | 2025-07-03 12:01 | XMS_ITS | Encounter Summary ---
Author Organization [employer] Address [address] [facility] 7 [place] [address] Care Team Providers Care Internal Medicine Hospitalist Name Role Phone Alysia Galloway CNP Primary Care Provider [phone] Reason for Visit * Reason Onset Date Comments chart prep 07/03/2025 Encounter Details Date Type Department Care Team ([facility] st Contact Info) Description 07/03/2025 Telephone [facility] MED & PEDS [address] [place], [place] [id number] Alysia Galloway, [place] [address] [place] [address] chart prep Social History Tobacco Use Types Packs/Day Years [...] encounter Miscellaneous Notes * Telephone Encounter - Balbina Case MA - 07/03/2025 8:48 AM EST Chart Prep Labs: not applicable Images: not applicable Referrals: not applicable Vaccines due: Covid, Flu, RSV, and Zoster Screenings: mammogram, eye exam, foot exam, and LMP Overdue care gaps: A1c, Glucose, SBIRT, SDOH, PHQ-9, and DERRICK-7 documented in this encounter Plan of Treatment Upcoming Encounters Date Type Department Care Team (Late st Contact Info) Description 08/14/2025 3:45 PM EST Office Visit [facility] MED & PEDS [address] [place] [address] Alysia Galloway CNP [address] [place] [address] documented as of this encounter Goals Goal Patient Goal Type Associated Problems Recent Progress Patient-Stated? Author Help patients manage their type 2 diabetes Care Plan Help patients manage their type 2 diabetes Luz Granado MD Weekly blood pressure task [...] documented as of this encounter Care Teams Internal Medicine Hospitalist Relationship Specialty Start Date End Date Alysia Galloway CNP [address] [place] [id number] PCP - General Family Medicine 06/01/25 documented as of this encounter
--- OUTSIDE RECORDS SUMMARY | 2025-07-03 12:01 | XMS_ITS | Encounter Summary ---
Author Organization [employer] Address [address] [facility] 7 [place] [address] Care Team Providers Care Blacksmith Apprentice Name Role Phone Alysia Galloway CNP Primary Care Provider [phone] Reason for Visit * Reason Onset Date Comments Nurse Triage 07/01/2025 Encounter Details Date Type Department Care Team ([facility] st Contact Info) Description 07/01/2025 Telephone [facility] MEDICINE [address] [place] [address] Alysia Galloway CNP [address] [place] [address] Nurse Triage Social History Tobacco Use Types [...] encounter Miscellaneous Notes * Telephone Encounter - Ayaan Grullon RN - 07/01/2025 10:20 AM EST called pt to triage, spoke to pt. pt states several weeks duration of left shoulder pain. pt statespain radiates down the arm with mild tingling of fingers intermittently. pt states unable to completely lift the shoulder and ROM is difficult. pt had left shoulder surgery back in 2003 and was doingwell until recently. advised home care: rest, fluids, ice, heat, OTC pain reliever as needed and call back if worsening or new concerns. given appt today with [facility] at 4:00 for exam. pt understandsand agrees with plan. Protocol Used: Shoulder Pain (Adult) Protocol-Based Disposition: See in Office or Video Visit Today or Tomorrow Video visit offer not recorded Positive Triage Question: * Patient wants to be seen * All higher-acuity triage questions were negative. Care Advice Discussed: * Reassurance and Education - Shoulder Pain * Pain Medicines * Pain Medicines - Extra Notes and Warnings * Reasons To Call Back - Severe pain lasts more than 2 hours after pain medicine - Moderate pain (such as interferes with normal activities) lasts over 3 days - Mild pain lasts over 7 days - Chest pain or difficulty breathing occurs - You become worse * Telephone Encounter - Bhaskar Dixon - 07/01/2025 10:05 AM EST Symptom: Arm Pain - Not From Injury Outcome: Schedule an urgent appointment (within 1 hour) or talk to a nurse or provider soon Reason: Can't use the arm normally Please contact pt at [phone]. documented in this encounter Plan of Treatment Upcoming Encounters Date Type Department Care Team ([facility] st Contact Info) Description 08/14/2025 3:45 PM EST Office Visit [facility] MED & PEDS [address] [place] [address] Alysia Galloway CNP [address] [place], [place] [phone] documented as of this encounter Goals Goal [...] documented as of this encounter Care Teams Blacksmith Apprentice Relationship Specialty Start Date End Date Alysia Galloway CNP [address] [place] [address] PCP - General Family Medicine 06/01/25 documented as of this encounter
[2025-07-03 14:14] LABS: MANUAL DIFF FLAG NO
[2025-07-03 14:24] LABS: Hematocrit 43.8 % (37.0-47.0); Hemoglobin 13.8 g/dl (12.0-16.0); Imm Gran Abs Auto 0.02 X10*3/uL (0.00-0.03); Imm Gran Pct Auto 0.3 % (0.0-0.4); Lymphocytes Absolute Auto 2.4 X10*3/uL (1.2-4.9); Mean Corpuscular HGB Conc 31.5 g/dl (31.0-35.0); Mean Corpuscular Hemoglobin 27.1 pg (27.0-33.0); Mean Corpuscular Volume 85.9 fL (80.0-98.0); NRBC Abs Auto 0.000 X10*3/uL (0.0-0.012); NRBC Pct Auto 0.0 /100WBC (0.0-0.2); Platelet Count 306 X10*3/uL (160-400); Red Blood Count 5.10 X10*6/uL (4.20-5.50); White Blood Count 7.9 X10*3/uL (4.8-10.8)
[2025-07-03 17:15] LABS: Microalbum/Creatinine Ratio Ur 10.0 ug/mg cr (<30)
[2025-07-03 18:00] LABS: Alanine Aminotransferase 16 U/L (0-31); Albumin Level 4.8 g/dL (3.5-5.0); Alkaline Phosphatase 82 U/L (39-117); Anion Gap 13 (12-20); Aspartate Amino Transferase 18 U/L (5-31); Blood Urea Nitrogen 15 mg/dL (9-16); Calcium 9.8 mg/dL (8.4-10.2); Carbon Dioxide 27 mmol/L (22-29); Chloride 105 mmol/L (96-108); Cholesterol 259 mg/dL (<200); Estimated Glomerular Filt Rate > 60; HDL Cholesterol 58 mg/dL (>40); Potassium 3.9 mmol/L (3.3-5.1); Sodium 141 mmol/L (135-145); Total Protein 7.6 g/dL (6.5-8.0); Triglycerides 155 mg/dL (<150)
== END 2025-07-03 10:24 | disposition home or self-care (01) ==
LOC: HO.CHCLDS 10:23
DX: E11.9 Type 2 diabetes mellitus without complications (principal)
CPT/HCPCS: 36415; 80053; 80061; 82043; 82570; 83036; 85025